=== PATIENT | male | born 1965 | race African-American/Black ===

== ENCOUNTER 2017-04-19 19:14 | Emergency (ER) | payer OTHER ==
[2017-04-19] MEDS ORDERED: XYLOCAINE 2 % (PLAIN) ONE (19:40)
[2017-04-19 19:44] VITALS: BP 142/103; BMI 24.5
[2017-04-19] MEDS ORDERED: ADACEL TDaP IM ONE ×2 (19:59→20:01)
[2017-04-19] MEDS ORDERED: ANCEF VIAL 1 GM IM ONE (19:59)
--- NOTE | 2017-04-19 20:00 | RAD ---
Right knee, two views Indication: Staple in right knee Findings: There is metallic staple in the prepatellar soft tissues. No cortical disruption or malali gnment is identified. No large joint effusion. There are minimal degenerative changes at the patello femoral compartment. Impression: Metallic staple within the anterior knee soft tissues. No acute skeletal abnormality identified. Min imal patellofemoral DJD. Reported By:
[2017-04-19] MEDS ORDERED: ANCEF VIAL 1 GM ONE (20:01)
--- NOTE | 2017-04-19 20:13 | DR.GENAD ---
HPI - PCP Primary Care Physician: [email or web address] - HPI Comment HPI Comment: HISTORY BELOW. - Complaint/Symptoms Chief Complaint Doctors Comments: WAS KATERIN A HOUSE AND STAPLE HIS RIGHT KNEE WITH STAPLE GUM. PORTION OF STAPLE EMBEDDED IN THE KNEE CAP. Chief Complaint:: pt was katerin a house and shot a staple in right knee Self Treatment fo Chief Complaint: none - Nurses notes reviewed Nurses Notes Review: Yes - Source History Provided: Patient - Mode of Arrival Mode of Arrival: Ambulatory - Timing Onset of Chief Complaint: 04/19/17 Came on: Suddenly - Duration Duration: Constant Duration: Minutes - Severity Severity: Moderate PMH - PMH Past Medical History: No Past Surgical History: Yes Past Surgical History Comment: hernia repair as a child - Family History History of Family Medical Conditions: No - Social History Does patient currently use any type of tobacco product: No Have you used tobacco products in the last 12 months: No Type of Tobacco Use: None Does any household member use tobacco: No Alcohol Use: None Do you use any recreational Drugs:: No Lives With: Alone Lives Where: Home - infectious screening In the last 2 months have you had wt loss of >10#?: NO Have you had fever, night sweats or hemotysis?: No Have you traveled outside the country in the last 6 months?: No Isolation: Standard ROS - Review of Systems Constitutional: No Symptoms Reported Eyes: No Symptoms Reported ENTM: No Symptoms Reported Respiratoy: No Symptoms Reported Cardiovascular: No Symptoms Reported Gastrointestinal/Abdominal: No Symptoms Reported Genitourinary: No Symptoms Reported Neurological: No Symptoms Reported Musculoskeletal: Right, Knee Integumentary: No Symptoms Reported Hematologic/Lymphatic: No Symptoms Reported Endocrine: No Symptoms Reported All Other Systems: Reviewed and Negative PE - Vital Signs Vitals: Temperature 98.7 F Pulse Rate 77 Respiratory Rate 16 Blood Pressure 142/103 O2 Sat by Pulse Oximetry 99 - General Limitations: No Limitations General Appearance: Alert - Head Head Exam: Normal Inspection - Eyes Eye exam: Normal Appearance - ENT ENT Exam: Normal External Ear Exam External Ear Exam: Normal External Inspection Nose Exam: Normal Nose Exam Mouth Exam: Normal Inspection Throat Exam: Normal Inspection - Neck Neck Exam: Normal Inspection - Chest Chest Inspection: Symmetric Chest Wall Rise - Respiratory Respiratory Exam: Normal Lung Sounds Bilat Respiratory Exam: Bilateral Clear to Auscultation - Cardiovascular Cardiovascular Exam: Regular Rate, Normal Rhythm, Normal Heart Sounds - Abdominal Exam Abdominal Exam: Normal Inspection - Extremities Extremities Exam: Joint Swelling (ENBEDDED STAPLE IN KNEE CAP.) - Neurologic Neurological Exam: Alert, Oriented X3 - Psychiatric Psychiatric Exam: Normal Affect, Normal Mood - Skin Skin Exam: Normal Color MDM - Differential Diagnosis Differential Diagnosis: FOREIGN BODY LEFT KNEE/ STAPLE Course - Treatment Treatment: SEE ORDERS. STAPLE REMOVED - Reevaluation 1st: Improved - Education/Counseling Education/Counseling: Patient, Education Educated On: Treatment, Diagnosis, Needs for Follow Up ROR - XRAY XRAY Interpreted by: Radiologist XRAY Findings: REPORT DISCUSS WITH PATIENT. 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 YOU HAD STABLE EMBEDDED IN RIGHT KNEE THAT WAS REMOVED IN ED.
== END 2017-04-19 20:31 | disposition home or self-care (01) ==
LOC: ER 19:26
PROC: 0HCMXZZ Extirpation of Matter from Right Foot Skin, External Approach (ICD-10-PCS; principal; 2017-04-19)
DX: S80.251A Superficial foreign body, right knee, initial encounter (principal); W45.8XXA Other foreign body or object entering through skin, initial encounter; Y92.89 Other specified places as the place of occurrence of the external cause
CPT/HCPCS: 10120; 73560; 90471; 96372; 99282; J0690; J2001